=== PATIENT | male | born 1970 | race Hispanic/Latino ===

== ENCOUNTER 2017-06-28 04:47 | Emergency (ER) | payer OTHER ==
[2017-06-28] MEDS ORDERED: TETANUS & DIPHTHERIA TOX,ADULT 0.5 ML VIAL ONE (04:59)
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
[2017-06-28] MEDS ORDERED: LIDOCAINE 1% 20 ML MDV ONE (05:19)
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
== END 2017-06-28 05:44 | disposition home or self-care (01) ==
LOC: ER 04:47
PROC: 0JQ00ZZ Repair Scalp Subcutaneous Tissue and Fascia, Open Approach (ICD-10-PCS; principal; 2017-06-28)
DX: S01.01XA Laceration without foreign body of scalp, initial encounter (principal); V49.49XA Driver injured in collision with other motor vehicles in traffic accident, initial encounter; Z23 Encounter for immunization
CPT/HCPCS: 70450; 72125; 90714; 99284

== ENCOUNTER 2017-07-03 | Emergency (ER) | payer OTHER ==
--- NOTE | 2017-07-03 18:42 | ER ---
Nurse's Notes [facility] Name: Kelvin Vences Age: 46 yrs Sex: Male : 1970 Arrival Date: 07/03/2017 Time: 18:25 Bed 23 Private MD: Diagnosis: Laceration without foreign body of other part of head-shaquille removed Presentation: 07/03 18:30 Presenting complaint: Patient states: 4 shaquille placed 6 days ago. Here for staple aj removal. Transition of care: patient was not received from another setting of care. Onset of symptoms was June 28, 2017. Initial Sepsis Screen: Does the patient meet any 2 criteria? No. Patient's initial sepsis screen is negative. Does the patient have a suspected source of infection? No. Patient's initial sepsis screen is negative. Care prior to arrival: None. 18:30 Method Of Arrival: Ambulatory aj 18:30 Acuity: MOHAMUD 5 aj Triage Assessment: 18:32 General: Appears in no apparent distress. comfortable, Behavior is calm, cooperative, aj appropriate for age. Pain: Denies pain. Neuro: Level of Consciousness is awake, alert, obeys commands, Oriented to person, place, time, situation, Appropriate for age. Respiratory: Airway is patent Respiratory effort is even, unlabored, Respiratory pattern is regular, symmetrical. Derm: Skin is intact, is healthy with good turgor, Skin is pink, warm \T\ dry. normal. Historical: - Allergies: 18:32 No Known Allergies; aj - Home Meds: 18:32 None [Active]; aj - PMHx: 18:32 None; aj - PSHx: 18:32 None; aj - Immunization history:: Adult Immunizations up to date. - Social history:: Smoking status: Patient/guardian denies using tobacco. Screenin:55 Abuse screen: Denies threats or abuse. Nutritional screening: No deficits noted. tl3 Tuberculosis screening: No symptoms or risk factors identified. Fall Risk None identified. Assessment: 18:35 General: Appears in no apparent distress. comfortable, well groomed, well developed, tl3 well nourished, Behavior is calm, cooperative, appropriate for age. Pain: Denies pain. Neuro: Level of Consciousness is awake, alert, obeys commands, Oriented to person, place, time, situation, Appropriate for age. Cardiovascular: No deficits noted. Respiratory: No deficits noted. GI: No signs and/or symptoms were reported involving the gastrointestinal system. : No signs and/or symptoms were reported regarding the genitourinary system. EENT: No signs and/or symptoms were reported regarding the EENT system. Derm: Reports needs shaquille removed, three noted to right side of the scalp, well healed well approximated wound, no redness or swelling. 18:37 Reassessment: Dr Ascencio at bedside to remove shaquille. tl3 Vital Signs: 18:32 BP 130 / 81; Pulse 82; Resp 16; Temp 97.4; Pulse Ox 98% on R/A; Weight 86.18 kg; Height aj 5 ft. 3 in. (160.02 cm); Pain 0/10; 18:32 Body Mass Index 33.66 (86.18 kg, 160.02 cm) ED Course: 18:25 Patient arrived in ED. mr 18:31 Triage completed. 18:32 Arm band placed on left wrist. Patient placed in an exam room. 18:33 Vane Celis RN is Primary Nurse. tl3 18:36 Kevin Ascencio MD is Attending Physician. [facility] 18:55 Patient has correct armband on for positive identification. tl3 18:55 No provider procedures requiring assistance completed. Patient did not have IV access tl3 during this emergency room visit. Administered Medications: No medications were administered Outcome: 18:42 Discharge ordered by . [facility] 18:53 Patient left the ED. tl3 18:55 Discharged to home ambulatory. tl3 18:55 Condition: good 18:55 Discharge instructions given to patient, Instructed on discharge instructions, Demonstrated understanding of instructions, follow-up care. Signatures: Keisha Magana, RN Kevin Agarwal MD MD cha Rivera, Maria mr Vane Celis, TERRELL RN tl3
--- NOTE | 2017-07-03 18:43 | EDPHYS ---
Physician Documentation [facility] Name: Kelvin Vences Age: 46 yrs Sex: Male : 1970 Arrival Date: 07/03/2017 Time: 18:25 Bed 23 Private MD: ED Physician Kevin Ascencio HPI: 07/03 18:39 This 46 yrs old Male presents to ER via Ambulatory with complaints of Suture emily Removal. 18:39 The patient has leora on the right frontal area. Sutures/leora progress: The emily patient has no c/o's. The wound is well-healing with no redness, swelling, discharge, or dehiscence reported. The patient has not experienced similar symptoms in the past. Historical: - Allergies: 18:32 No Known Allergies; aj - Home Meds: 18:32 None [Active]; aj - PMHx: 18:32 None; aj - PSHx: 18:32 None; aj - Immunization history:: Adult Immunizations up to date. - Social history:: Smoking status: Patient/guardian denies using tobacco. ROS: 18:39 Constitutional: Negative for fever, chills, and weight loss, Eyes: Negative for injury, emily pain, redness, and discharge, ENT: Negative for injury, pain, and discharge, Neck: Negative for injury, pain, and swelling, Cardiovascular: Negative for chest pain, palpitations, and edema, Respiratory: Negative for shortness of breath, cough, wheezing, and pleuritic chest pain, Abdomen/GI: Negative for abdominal pain, nausea, vomiting, diarrhea, and constipation, Back: Negative for injury and pain, : Negative for injury, bleeding, discharge, and swelling, MS/Extremity: Negative for injury and deformity, Neuro: Negative for headache, weakness, numbness, tingling, and seizure, Psych: Negative for depression, anxiety, suicide ideation, homicidal ideation, and hallucinations, Allergy/Immunology: Negative for hives, rash, and allergies, Endocrine: Negative for neck swelling, polydipsia, polyuria, polyphagia, and marked weight changes, Hematologic/Lymphatic: Negative for swollen nodes, abnormal bleeding, and unusual bruising. 18:39 Skin: Positive for laceration(s), of the right frontal area. Exam: 18:39 Constitutional: This is a well developed, well nourished patient who is awake, alert, emily and in no acute distress. Eyes: Pupils equal round and reactive to light, extra-ocular motions intact. Lids and lashes normal. Conjunctiva and sclera are non-icteric and not injected. Cornea within normal limits. Periorbital areas with no swelling, redness, or edema. ENT: Nares patent. No nasal discharge, no septal abnormalities noted. Tympanic membranes are normal and external auditory canals are clear. Oropharynx with no redness, swelling, or masses, exudates, or evidence of obstruction, uvula midline. Mucous membranes moist. Neck: Trachea midline, no thyromegaly or masses palpated, and no cervical lymphadenopathy. Supple, full range of motion without nuchal rigidity, or vertebral point tenderness. No Meningismus. Chest/axilla: Normal chest wall appearance and motion. Nontender with no deformity. No lesions are appreciated. Cardiovascular: Regular rate and rhythm with a normal S1 and S2. No gallops, murmurs, or rubs. Normal PMI, no JVD. No pulse deficits. Respiratory: Lungs have equal breath sounds bilaterally, clear to auscultation and percussion. No rales, rhonchi or wheezes noted. No increased work of breathing, no retractions or nasal flaring. Abdomen/GI: Soft, non-tender, with normal bowel sounds. No distension or tympany. No guarding or rebound. No evidence of tenderness throughout. Back: No spinal tenderness. No costovertebral tenderness. Full range of motion. Male : Normal genitalia with no discharge or lesions. Skin: Warm, dry with normal turgor. Normal color with no rashes, no lesions, and no evidence of cellulitis. MS/ Extremity: Pulses equal, no cyanosis. Neurovascular intact. Full, normal range of motion. Neuro: Awake and alert, GCS 15, oriented to person, place, time, and situation. Cranial nerves II-XII grossly intact. Motor strength 5/5 in all extremities. Sensory grossly intact. Cerebellar exam normal. Normal gait. Psych: Awake, alert, with orientation to person, place and time. Behavior, mood, and affect are within normal limits. 18:39 Head/face: Noted is a laceration(s), of the right frontal area. Vital Signs: 18:32 BP 130 / 81; Pulse 82; Resp 16; Temp 97.4; Pulse Ox 98% on R/A; Weight 86.18 kg; Height aj 5 ft. 3 in. (160.02 cm); Pain 0/10; 18:32 Body Mass Index 33.66 (86.18 kg, 160.02 cm) Procedures: 18:39 Suture/Staple removal: Removed 3 leora, from , site appears well healed, dressed with emily none. Patient tolerated well. MDM: 18:36 Patient medically screened. [facility] 18:36 Patient medically screened. [facility] 18:39 Data reviewed: vital signs, nurses notes. [facility] 07/03 18:38 Order name: Staple Remover Setup; Complete Time: 18:54 [facility] Administered Medications: No medications were administered Disposition: 07/03/17 18:42 Discharged to Home. Impression: Laceration without foreign body of other part of head - leora removed. - Condition is Stable. - Discharge Instructions: Facial Laceration, Stitches, Leora, or Adhesive Wound Closure, Facial Laceration, [id number]. - Medication Reconciliation Form, Thank You Letter, Antibiotic Education, Prescription Opioid Use form. - Follow up: Private Physician; When: 5 - 6 days; Reason: Recheck today's complaints, Continuance of care, Re-evaluation by your physician. - Problem is new. - Symptoms have improved. Signatures: Keisha Magana, RN RN Kevin Hammond MD MD cha Lowrey, Tammy, RN RN tl3
== END 2017-07-03 18:53 | disposition home or self-care (01) ==
DX: Z48.02 Encounter for removal of sutures (principal)
CPT/HCPCS: 99281